=== PATIENT | male | born 1985 | race Caucasian/White ===

== ENCOUNTER 2024-05-25 06:31 | Observation (INO) | payer OTHER ==
[2024-05-23 16:49] LABS: BASOPHILS # (AUTO) 0.1 (0.0-0.1); BASOPHILS % 0.6 % (0.0-1.0); EOSINOPHILS # (AUTO) 0.1 (0.0-0.4); EOSINOPHILS % 1.5 % (0.0-6.0); HEMATOCRIT 43.1 % (38.2-49.6); HEMOGLOBIN 14.5 g/dL (14.0-18.0); LYMPHOCYTES # (AUTO) 2.2 (1.0-3.2); LYMPHOCYTES % 28.4 % (18.0-39.1); MEAN CORPUSCULAR HEMOGLOBIN 29.1 pg (28-32); MEAN CORPUSCULAR HGB CONC 33.6 g/dL (31-35); MEAN CORPUSCULAR VOLUME 86.5 fL (81-99); MONOCYTES # (AUTO) 0.6 (0.2-0.8); NEUTROPHILS # (AUTO) 4.8 (2.1-6.9); PLATELET COUNT 265 x10e3/uL (140-360); RED BLOOD COUNT 4.98 x10e6/uL (4.3-5.7); WHITE BLOOD COUNT 7.88 x10e3/uL (4.8-10.8)
[2024-05-23 17:05] LABS: INR 0.96; PROTHROMBIN TIME 13.5 seconds (11.9-14.5)
[2024-05-23 17:06] LABS: PARTIAL THROMBOPLASTIN TIME 30.3 seconds (23.8-35.5)
[2024-05-23 17:11] LABS: ANION GAP 13.9 mmol/L (8-16); CALCIUM 9.3 mg/dL (8.4-10.2); CREATININE, SERUM 0.97 mg/dL (0.72-1.25); POTASSIUM 3.9 mmol/L (3.5-5.1)
[~2024-05-25 06:31] MED LIST: CIALIS10 MG PO
[2024-05-25] MEDS ORDERED: THROMBIN FOR SOLN 5,000 UNIT VIAL ONE (06:58)
[2024-05-25] MEDS ORDERED: Vancomycin IV 1 GM VIAL ONE (06:58)
[2024-05-25] MEDS ORDERED: LIDOCAINE 1% W/EPINEPHRINE 20 ML VIAL ONE (06:58)
[2024-05-25] MEDS: LACTATED RINGER'S 1,000 ML ONE (07:26)
[2024-05-25] MEDS ORDERED: ACETAMINOPHEN 325 MG TAB PO PRN (10:15)
[2024-05-25] MEDS ORDERED: ONDANSETRON HCL INJ 2MG/ML 2ML 2 MG/ML VIAL IV PRN (10:15)
[2024-05-25] MEDS ORDERED: PROMETHAZINE HCL (IM) 25 MG/ML VIAL IM PRN (10:15)
[2024-05-25] MEDS ORDERED: ZOLPIDEM TARTRATE 5 MG TAB PO PRN (10:15)
[2024-05-25] MEDS ORDERED: Morphine 10mg syringe 10 MG/ML INJ IM PRN (10:15)
[2024-05-25] MEDS ORDERED: HYDROCODON-ACE1 EA12 PO (10:15)
[2024-05-25] MEDS: CARISOPRODOL 350 MG TAB ONE (11:04)
[2024-05-25] MEDS: OXYCODONE/ACETAMINOPHEN 5-325 1 EACH TABLET ONE (11:04)
[2024-05-25] MEDS ORDERED: SUGAMMADEX SODIUM 200 MG/2 ML VIAL IV ONE (12:33)
[2024-05-25] MEDS ORDERED: ROCURONIUM BROMIDE 10 MG/ML 5ML VIAL IV ONE (12:33)
[2024-05-25] MEDS ORDERED: LIDOCAINE HCL 2% LOCAL INJ 5 ML SDV VIAL INJ ONE (12:33)
[2024-05-25] MEDS ORDERED: ONDANSETRON HCL INJ 2MG/ML 2ML 2 MG/ML VIAL ONE (12:33)
[2024-05-25] MEDS ORDERED: DEXMEDETOMIDINE HCL 200 MCG/2 ML VIAL ONE (12:33)
[2024-05-25] MEDS ORDERED: ACETAMINOPHEN 1000 MG/100 ML IV ONE (12:33)
[2024-05-25] MEDS ORDERED: SEVOFLURANE INHAL SOLN 250 ML PEN BTL ONE (12:33)
[2024-05-25] MEDS ORDERED: DEXAMETHASONE SOD PHOS 10 MG/1 ML VIAL ONE (12:33)
[2024-05-25] MEDS ORDERED: PROPOFOL IV EMULSION 10 MG/ML 20 ML VIAL ONE (12:33)
[2024-05-25] MEDS ORDERED: KETAMINE 50MG/5ML SYR ONE (12:33)
[2024-05-25 12:38] VITALS: BP 136/81; PULSE 84; RESP 19; TEMP 98.1; O2SAT 100
[2024-05-25] MEDS ORDERED: MIDAZOLAM HCL 2 MG/2 ML VIAL ONE (13:00)
[2024-05-25] MEDS ORDERED: FENTANYL CITRATE/PF 100MCG/2 ML INJ ONE (13:00)
[2024-05-25 15:18] VITALS: BP 118/77; PULSE 77; RESP 18; TEMP 98; O2SAT 98
[2024-05-25] MEDS: OXYCODONE/ACETAMINOPHEN 5-325 1 EACH TABLET PO PRN (16:06)
[2024-05-25 20:00] VITALS: BP 142/81; PULSE 81; RESP 19; TEMP 99.1; O2SAT 95
[2024-05-25] MEDS: CEFAZOLIN SODIUM 2 GM ONE (20:04)
[2024-05-25] MEDS: LACTATED RINGER'S 1,000 ML IV SCH (20:57)
[2024-05-25] MEDS: CARISOPRODOL 350 MG TAB PO PRN (20:59)
[2024-05-25] MEDS: MAGNESIUM/ALUMINUM/SIMETHICONE 30 ML UDC PO PRN (20:59)
[2024-05-26] VITALS: BP 122/71; PULSE 74; RESP 19; TEMP 98.4; O2SAT 97
[2024-05-26 04:58] VITALS: BP 123/82; PULSE 75; RESP 18; TEMP 98.7; O2SAT 98
[2024-05-26 05:20] VITALS: BP 123/82; PULSE 75; RESP 18; TEMP 98.7; O2SAT 98
[2024-05-26 09:00] VITALS: BP 123/82; PULSE 75; RESP 18; TEMP 98.7; O2SAT 98
[2024-05-26 09:12] VITALS: BP 139/83; PULSE 81; RESP 20; TEMP 97.7; O2SAT 98
[2024-05-26] MEDS: ONDANSETRON HCL 4 MG ORAL DISINTEGRATING TAB PO PRN (10:59)
[2024-05-26] MEDS: HYDROMORPHONE 2MG/ML IV PRN (11:00)
== END 2024-05-26 12:03 | disposition home or self-care (01) ==
LOC: OR 06:31 → PACU V 10:14 → MED/SURG 11:32
PROVIDERS: ADMIT Neurological Surgery; ATTEND Neurological Surgery
DX: M51.16 Intervertebral disc disorders with radiculopathy, lumbar region (principal); Z01.810 Encounter for preprocedural cardiovascular examination; Z01.812 Encounter for preprocedural laboratory examination; Z01.818 Encounter for other preprocedural examination
CPT/HCPCS: 36415; 63047; 71046; 72020; 80048; 85025; 85610; 85730; 86850; 86900; 88304; 93005; G0378 ×2; J0131; J0690 ×2; J1100; J1170; J2001; J2250; J2405; J2704; J3010; J3370; J7121 ×2; Q0162; 88311